=== PATIENT | male | born 1960 | race African-American/Black ===

== ENCOUNTER 2016-11-07 15:47 | Emergency (ER) | payer MEDICARE ==
[2016-11-07] MEDS ORDERED: LORATADINE 10 MG TABLET PO ONE (16:55)
[2016-11-07] MEDS ORDERED: GUAIFENESIN 600 MG TABLET.SA PO ONE (16:55)
[2016-11-07] MEDS ORDERED: IBUPROFEN 600 MG TABLET PO ONE (16:55)
--- NOTE | 2016-11-07 16:56 | ER Document Report ---
ED Respiratory Problem - General Chief Complaint: Headache, sinus problems Stated Complaint: CONGESTION Time seen by provider: 16:52 Mode of Arrival: Ambulatory Information source: Patient Notes: 56-year-old man presents to ED for sinus congestion and shortness of breath since yesterday. States he felt hot last night but did not have a fever and did not take his temperature. He also had a headache last night. TRAVEL OUTSIDE OF THE [place] IN LAST 30 DAYS: No - HPI Patient complains to provider of: Cough, Short of breath Onset: Yesterday Duration: Intermittent episodes Initiating Event: URI Quality of pain: Achy Severity: Moderate Pain Level: 3 Context: Smoker Cough: Nonproductive Sputum amount: None Associated symptoms: Chills, Headache, PND, Runny nose, Sinus pain/pressure, Short of breath Similar symptoms previously: Yes Recently seen / treated by doctor: No - Related Data Allergies/Adverse Reactions: No Known Allergies Allergy (Unverified 09/07/15 11:52) Past Medical History - General Information source: Patient - Social History Smoking Status: Current Every Day Smoker Cigarette use (# per day): Yes - half pack a day Chew tobacco use (# tins/day): No Smoking Education Provided: Yes - less than 2 minutes Frequency of alcohol use: Social Drug Abuse: None Occupation: none Lives with: Family Family History: Arthritis, DM, Hyperlipidemia, Hypertension, Malignancy - Past Medical History Cardiac Medical History: Reports: None Pulmonary Medical History: Reports: None EENT Medical History: Reports: None Neurological Medical History: Reports: None Endocrine Medical History: Reports: Hx Hypothyroidism Renal/ Medical History: Reports: None Malignancy Medical History: Reports None GI Medical History: Reports: None Musculoskeltal Medical History: Reports Hx Arthritis, Reports Hx Musculoskeletal Deformity, Reports Hx Musculoskeletal Trauma Skin Medical History: Reports None Psychiatric Medical History: Reports: None Traumatic Medical History: Reports: None Infectious Medical History: Reports: None Past Surgical History: Reports: Hx Orthopedic Surgery - Hand surgery for severe cuts to fingers, Hx Thyroid Surgery - Immunizations Hx Diphtheria, Pertussis, Tetanus Vaccination: No Review of Systems - Review of Systems Constitutional: Chills, Recent illness EENT: Nose discharge, Sinus pressure, Sinus discharge Cardiovascular: No symptoms reported Respiratory: Cough Gastrointestinal: No symptoms reported Genitourinary: No symptoms reported Male Genitourinary: No symptoms reported Musculoskeletal: No symptoms reported Skin: No symptoms reported Hematologic/Lymphatic: No symptoms reported Neurological/Psychological: No symptoms reported -: Yes All other systems reviewed and negative Physical Exam - Vital signs Vitals: Temp Pulse Resp BP Pulse Ox 97.9 F 89 16 153/97 H 97 11/07/16 16:21 11/07/16 16:21 11/07/16 16:21 11/07/16 16:21 11/07/16 16:21 Interpretation: Normal, Hypotensive - General General appearance: Appears well, Alert - HEENT Head: Normocephalic, Atraumatic Eyes: Normal Pupils: PERRL Ears: Normal External canal: Normal Tympanic membrane: Normal Sinus: Normal Nasal: Purulent discharge, Swelling Mouth/Lips: Normal Mucous membranes: Normal Pharynx: Post nasal drainage Neck: Normal - Respiratory Respiratory status: No respiratory distress Chest status: Nontender Breath sounds: Nonproductive cough Chest palpation: Normal - Cardiovascular Rhythm: Regular Heart sounds: Normal auscultation Murmur: No - Abdominal Inspection: Normal Distension: No distension Bowel sounds: Normal Tenderness: Nontender Organomegaly: No organomegaly - Back Back: Normal, Nontender - Extremities General upper extremity: Normal inspection, Nontender, Normal color, Normal ROM , Normal temperature General lower extremity: Normal inspection, Nontender, Normal color, Normal ROM , Normal temperature, Normal weight bearing. No: Yaron's sign - Neurological Neuro grossly intact: Yes Cognition: Normal Orientation: AAOx4 Elizabeth Coma Scale Eye Opening: Spontaneous Christiana Coma Scale Verbal: Oriented Christiana Coma Scale Motor: Obeys Commands Elizabeth Coma Scale Total: 15 Speech: Normal Motor strength normal: LUE, RUE, LLE, RLE Sensory: Normal - Psychological Associated symptoms: Normal affect, Normal mood - Skin Skin Temperature: Warm Skin Moisture: Dry Skin Color: Normal Course - Re-evaluation Re-evalutation: 11/07/16 17:07 Symptoms consistent with an upper respiratory infection. Patient given instructions care of upper respiratory infection and instructed to follow-up with his primary physician if symptoms increase. Patient also instructed to follow-up with primary physician for his elevated blood pressure. 0 - Vital Signs Vital signs: Temp Pulse Resp BP Pulse Ox 97.9 F 89 16 153/97 H 97 11/07/16 16:21 11/07/16 16:21 11/07/16 16:21 11/07/16 16:21 11/07/16 16:21 Discharge - Discharge Clinical Impression: Upper respiratory infection Qualifiers: URI type: unspecified URI Qualified Code(s): J06.9 - Acute upper respiratory infection, unspecified Condition: Stable Disposition: HOME, SELF-CARE Instructions: Family Physicians / Practices Additional Instructions: UPPER RESPIRATORY ILLNESS: You have a viral infection of the respiratory passages -- a "cold." This common infection causes nasal congestion, drainage, and often sore throat and cough. It is highly contagious. The disease usually lasts about 10 to 14 days. There is no "cure" for the viral infection -- it must run its course. If there is a complication, such as bacterial infection in the nose, sinuses, middle ear, or bronchial tubes, antibiotics may be required. The antibiotics won't affect the virus. Drink plenty of fluids. A humidifier may help. An expectorant medication or decongestant may make you more comfortable. Use acetaminophen or ibuprofen for fever or aches. See the doctor if fever persists over two days, if there is any significant worsening of your symptoms, or if you simply fail to improve as expected. COUGH-SUPPRESSANT & EXPECTORANT MEDICATION: You are to use a cough medication as needed for relief of symptoms. This medicine is a combination of an expectorant (to make the mucous thinner and more easily "coughed up") and a cough suppressant (to reduce the frequency of coughing). The cough-suppressant medicine is related to narcotics. You may experience mild nausea and sleepiness. Some patients who are very sensitive to narcotics may have stomach pain from this medicine. Taking the medicine with food reduces these side effects. Do not drive or work with machinery until you know how this medicine affects you. The expectorant should have no side effects. Iodine-containing expectorants (such as organidin) should not be taken by persons with active thyroid disease unless approved by your doctor. Call the doctor if you develop shortness of breath, hives, rash, itching, lightheadedness, or severe nausea and vomiting. SMOKING: If you smoke, you should stop smoking. The tar and chemicals in cigarette smoke are harmful. Smoking has been shown to cause: emphysema chronic bronchitis lung cancer mouth and throat cancer stomach and pancreas cancer premature aging defects In addition, smoking increases ear and lung infections in children of smokers. FOLLOW-UP CARE: If you have been referred to a physician for follow-up care, call the physician s office for an appointment as you were instructed or within the next two days. If you experience worsening or a significant change in your symptoms, notify the physician immediately or return to the Emergency Department at any time for re-evaluation. Forms: Elevated Blood Pressure, Smoking Cessation Education, Return to Work
[2016-11-07 17:28] VITALS: BP 144/97
== END 2016-11-07 17:15 | disposition home or self-care (01) ==
LOC: ER 15:47
DX: J06.9 Acute upper respiratory infection, unspecified (principal); R51 Headache; R06.02 Shortness of breath; F17.210 Nicotine dependence, cigarettes, uncomplicated; R68.83 Chills (without fever)
CPT/HCPCS: 99283; A9270 ×3

== ENCOUNTER 2018-06-13 08:30 | Emergency (ER) | payer MEDICARE, MEDICAID ==
[2018-06-13 08:45] VITALS: BP 135/89
[2018-06-13] MEDS ORDERED: ERYTHROMYCIN 0.5% OPH OINTMENT 3.5 GM TUBE OD ONE (09:40)
--- NOTE | 2018-06-13 09:49 | ER Document Report ---
ED Eye Complaint - General Chief Complaint: Eye Injury Stated Complaint: EYE INJURY Time Seen by Provider: 06/13/18 09:09 TRAVEL OUTSIDE OF THE [place] IN LAST 30 DAYS: No - HPI Notes: Patient is a 58-year-old male that presents to the emergency department for chief complaint of right eye pain. Patient states 1 week ago while working on a friend's car a piece of metal hosing flew off and hit him in his right eye. He is not sure if his eye was open or closed when it hit him. He states he is having pain when he looks laterally with his right eye. He also reports diffuse pain across his eyeball. The pain is making it hard for him to keep his right eye open. He denies any blurry or double vision. He does not wear contact lenses. He does not have an sap portal architect and has not seen any physician for this injury yet. He has not been taking any pain medication at home. He does report copious drainage from the right eye and increased redness over the last few days. Past Medical History: Reviewed in chart Past Surgical History: Reviewed in chart Social History: Reviewed in chart Family History: Reviewed and noncontributory for presenting illness Allergies: Reviewed, see documented allergy list. REVIEW OF SYSTEMS: CONSTITUTIONAL : No fever No chills No diaphoresis No recent illness EENT: No vision changes Right eye pain No congestion No sore throat CARDIOVASCULAR: No chest pain No palpitations RESPIRATORY: No shortness of breath No cough No difficulty breathing GASTROINTESTINAL: No abdominal pain No nausea No vomiting No diarrhea GENITOURINARY: No dysuria No hematuria No difficulty urinating MUSCULOSKELETAL: No back pain No leg pain No arm pain SKIN: No rashes No lesions LYMPHATIC: No swollen, enlarged glands. NEUROLOGICAL: No lightheadedness No headache No weakness No paresthesias PSYCHIATRIC: No anxiety No depression PHYSICAL EXAMINATION: Vital signs reviewed, nursing noted reviewed. GENERAL: Well-appearing, well-nourished and in no acute distress. HEAD: Atraumatic, normocephalic. EYES: Right eye conjunctival injection with thin clear copious discharge. Diffuse fluorescein uptake with no ulcer or focal abrasion. No Cuong sign. Normal range of motion. PERRLA. Pain with palpation of right eyebrow with no bony fluctuance ENT: nares patent, oropharynx clear without exudates. Moist mucous membranes. NECK: Normal range of motion, supple without lymphadenopathy LUNGS: Breath sounds clear to auscultation bilaterally and equal. No wheezes rales or rhonchi. HEART: Regular rate and rhythm without murmurs ABDOMEN: Soft, nontender, normoactive bowel sounds. No rebound, guarding, or rigidity. No masses appreciated. EXTREMITIES: Nontender, good range of motion, no pitting or edema. NEUROLOGICAL: No focal neurological deficits. Moves all extremities spontaneously Motor and sensory grossly intact on exam. PSYCH: Normal mood, normal affect. SKIN: Warm, Dry, normal turgor, no rashes or lesions noted on exposed skin - Related Data Allergies/Adverse Reactions: No Known Allergies Allergy (Verified 06/13/18 08:32) Past Medical History - Social History Smoking Status: Current Every Day Smoker Chew tobacco use (# tins/day): No Frequency of alcohol use: None Drug Abuse: None Family History: Arthritis, DM, Hyperlipidemia, Hypertension, Malignancy Patient has suicidal ideation: No Patient has homicidal ideation: No Endocrine Medical History: Reports: Hx Hypothyroidism. Denies: Hx Diabetes Mellitus Type 1, Hx Diabetes Mellitus Type 2 Renal/ Medical History: Denies: Hx Peritoneal Dialysis Musculoskeletal Medical History: Reports Hx Arthritis, Reports Hx Musculoskeletal Deformity, Reports Hx Musculoskeletal Trauma Past Surgical History: Reports: Hx Orthopedic Surgery - Hand surgery for severe cuts to fingers, Hx Thyroid Surgery - Immunizations Hx Diphtheria, Pertussis, Tetanus Vaccination: No Physical Exam - Vital signs Vitals: Temp Pulse Resp BP Pulse Ox 98.1 F 77 18 135/89 H 96 06/13/18 08:43 06/13/18 08:43 06/13/18 08:43 06/13/18 08:43 06/13/18 08:43 - HEENT Visual acuity- Right eye: 20/25 Visual acuity- Left eye: 20/40 Visual acuity- Both eyes: 20/15 Corrective lenses worn: No Course - Re-evaluation Re-evalutation: 06/13/18 09:48 Vitals reviewed. Nursing notes reviewed. Patient had significant relief of pain with tetracaine in his right eye. He has diffuse tetracaine uptake consistent with a keratitis. There is no focal corneal abrasion or ulcer. Patient is having pain with ocular movement and CT scan will be obtained to evaluate for orbital injury or her hematoma. 06/13/18 10:31 CT scan of patient's orbit shows soft tissue swelling with no other acute injury. I have arranged for patient to be seen by an sap portal architect at Dr. Escoto's office right now. He will be discharged from the emergency room and instructed to go straight to the ophthalmology office for further evaluation. Patient was given a prescription for erythromycin. He is in agreement with this plan and stable at discharge. Orbit CT 06/13/18 09:40 IMPRESSION: Right orbital preseptal soft tissue swelling without radiopaque foreign body. No right globe radiopaque foreign body or soft tissue gas. Right orbital intra and extraconal fat, optic nerve intact. Remainder of the CT of the orbits and facial bones is otherwise unremarkable. - Vital Signs Vital signs: Temp Pulse Resp BP Pulse Ox 98.1 F 77 18 135/89 H 96 06/13/18 08:43 06/13/18 08:43 06/13/18 08:43 06/13/18 08:43 06/13/18 08:43 Discharge - Discharge Clinical Impression: Right eye injury Qualifiers: Encounter type: initial encounter Qualified Code(s): S05.91XA - Unspecified injury of right eye and orbit, initial encounter Condition: Stable Disposition: HOME, SELF-CARE Instructions: Eye Injury ([facility]) Prescriptions: Erythromycin Base [Erythromycin Oph 1 Gm Oint Ud] 1 applic OD TID 7 Days tube Referrals: TYLER ESCOTO MD [ACTIVE STAFF] - 06/13/18
--- NOTE | 2018-06-13 10:09 | RADIOLOGY REPORT (SQ) ---
EXAM DESCRIPTION: CT ORBIT/SELLA WITHOUT COMPLETED DATE/TIME: 06/13/2018 9:58 am REASON FOR STUDY: right eye trauma changeing a clamp on a small water hose, which flipped back into patient's right eye COMPARISON: None. TECHNIQUE: Noncontrasted images through the orbits windowed for bone and soft tissue. Additional co gabriel and sagittal reconstructed images reviewed. All images stored on PACS. All CT scanners at this facility use dose modulation, iterative reconstruction, and/or weight based d osing when appropriate to reduce radiation dose to as low as reasonably achievable (ALARA). [facility]: Dose Right [facility]: CareDose [facility]: Dose Right [facility]: Teradose 4D [facility]: [employer] RADIATION DOSE: CT Rad equipment meets quality standard of care and radiation dose reduction techniq ues were employed. CTDIvol: 30.4 mGy. DLP: 382 mGy-cm. mGy. LIMITATIONS: None. FINDINGS: FACIAL BONES: No fracture or bone lesion. ORBITS: On the right side, diffuse mild preseptal orbital soft tissue swelling is present. Right jared be is intact. No radiopaque foreign body in the globe for preseptal or deep intra orbital soft tissu es. No fracture. Left orbit and globe unremarkable PARANASAL SINUSES: Clear. No significant mucosal thickening, mass or fluid. No nasal polyps. Maxilla ry sinus outlets are patent. SOFT TISSUES: No mass or edema. INFERIOR BRAIN: Limited view. No acute findings. OTHER: No other significant finding. IMPRESSION: Right orbital preseptal soft tissue swelling without radiopaque foreign body. No right globe radiopaque foreign body or soft tissue gas. Right orbital intra and extraconal fat, optic nerv e intact. Remainder of the CT of the orbits and facial bones is otherwise unremarkable. TECHNICAL DOCUMENTATION: JOB ID: [id number] Quality ID # [id number]: Final reports with documentation of one or more dose reduction techniques (e.g., Au tomated exposure control, adjustment of the mA and/or kV according to patient size, use of iterative reconstruction technique) 2010 [employer] ([employer])- All Rights Reserved Reading location - IP/workstation name: [email or web address]
== END 2018-06-13 10:39 | disposition home or self-care (01) ==
LOC: ER 08:30
DX: S05.91XA Unspecified injury of right eye and orbit, initial encounter (principal); H57.11 Ocular pain, right eye; W20.8XXA Other cause of strike by thrown, projected or falling object, initial encounter; Y93.89 Activity, other specified; F17.200 Nicotine dependence, unspecified, uncomplicated
CPT/HCPCS: 99283; 70480; A9270; J3490